=== PATIENT | female | born 2005 | race Caucasian/White ===

== ENCOUNTER 2023-01-17 22:57 | Emergency (ER) | payer MEDICAID ==
[~2023-01-17] VITALS: Ht 157.5 cm; Wt 60.8 kg
[2023-01-17 23:07] VITALS: BP 107/55
[2023-01-17] MEDS ORDERED: ACETAMINOPHEN EXTRA STRENGTH 500 MG TAB ONE (23:15)
[2023-01-17] MEDS: ACETAMINOPHEN EXTRA STRENGTH 500 MG TAB PO ONE (23:16)
--- NOTE | 2023-01-17 23:20 | NUR ---
COVID-19 and swabs collected and sent to lab.
--- NOTE | 2023-01-17 23:29 | NUR ---
WALKED URINE TO LAB.
--- NOTE | 2023-01-18 00:09 | NUR ---
Dr. Thorne examining patient.
[2023-01-18] MEDS ORDERED: ACET-10509 PO (00:15)
[2023-01-18] MEDS ORDERED: IBUP-2213 PO (00:15)
--- NOTE | 2023-01-18 00:25 | NUR ---
Strep A swabs collected and sent to lab.
[2023-01-18] MEDS: DEXAMETHASONE 10 MG/ML VIAL PO ONE (00:27)
[2023-01-18 00:39] VITALS: BP 102/55
--- NOTE | 2023-01-18 00:39 | NUR ---
Patient discharged with v/s stable. Written and verbal after care instructions given and explained. Patient alert, oriented and verbalized understanding of instructions. Ambulatory with steady gait. All questions addressed prior to discharge. ID band removed. Patient advised to follow up with PMD. Rx of Ibuprofen and Tylenol given. Patient educated on indication of medication including possible reaction and side effects. Opportunity to ask questions provided and answered.
== END 2023-01-18 00:39 | disposition home or self-care (01) ==
LOC: MED 22:57
DX: U07.1 COVID-19 (principal); Z79.899 Other long term (current) drug therapy; Z79.1 Long term (current) use of non-steroidal anti-inflammatories (NSAID)
CPT/HCPCS: 87081; 87426; 87804; 99283; J1100